=== PATIENT | female | born 1950 | race Caucasian/White ===

== ENCOUNTER → 2018-05-26 12:53 | Outpatient (BNVA) | payer MEDICARE, BC, SELFPAY | PROVIDERS: PCP Internal Medicine; Visit Provider Nurse Practitioner Adult Health | DX: G30.9 Alzheimer's disease, unspecified (principal); F02.80 Dementia in other diseases classified elsewhere, unspecified severity, without behavioral disturbance, psychotic disturbance, mood disturbance, and anxiety; R19.7 Diarrhea, unspecified | CPT/HCPCS: 99213 ==

== ENCOUNTER → 2018-11-26 15:09 | Outpatient (BNVA) | payer MEDICARE, BC, SELFPAY | PROVIDERS: PCP Internal Medicine; Visit Provider Nurse Practitioner Adult Health | DX: G30.1 Alzheimer's disease with late onset (principal); F02.80 Dementia in other diseases classified elsewhere, unspecified severity, without behavioral disturbance, psychotic disturbance, mood disturbance, and anxiety; E11.9 Type 2 diabetes mellitus without complications; Z79.84 Long term (current) use of oral hypoglycemic drugs | CPT/HCPCS: 99213 ==

== ENCOUNTER → 2019-05-27 12:32 | Outpatient (BNVA) | payer MEDICARE, BC, SELFPAY | PROVIDERS: PCP Family Medicine; Visit Provider Nurse Practitioner Adult Health | DX: G30.1 Alzheimer's disease with late onset (principal); F02.80 Dementia in other diseases classified elsewhere, unspecified severity, without behavioral disturbance, psychotic disturbance, mood disturbance, and anxiety; E11.9 Type 2 diabetes mellitus without complications; I10 Essential (primary) hypertension; Z79.84 Long term (current) use of oral hypoglycemic drugs | CPT/HCPCS: 99213 ==

== ENCOUNTER → 2020-06-13 11:11 | Outpatient (BNVA) | payer MEDICARE, BC, SELFPAY | PROVIDERS: PCP Family Medicine; Referring Provider Family Medicine; Visit Provider Nurse Practitioner Adult Health | DX: G30.1 Alzheimer's disease with late onset (principal); F02.80 Dementia in other diseases classified elsewhere, unspecified severity, without behavioral disturbance, psychotic disturbance, mood disturbance, and anxiety; E11.9 Type 2 diabetes mellitus without complications; I10 Essential (primary) hypertension; Z79.84 Long term (current) use of oral hypoglycemic drugs | CPT/HCPCS: 99213 ==

== ENCOUNTER → 2021-06-12 12:41 | Outpatient (BNVA) | payer MEDICARE, BC, SELFPAY | PROVIDERS: PCP Family Medicine; Visit Provider Nurse Practitioner Adult Health | DX: R69 Illness, unspecified (principal) ==

== ENCOUNTER 2021-06-12 13:06 | Emergency (ER) | payer MEDICARE, BC, SELFPAY ==
[2021-06-12 13:14] VITALS: BP 146/78; PULSE 83; RESP 18; TEMP 36.6; O2SAT 96
--- OUTSIDE RECORDS SUMMARY | 2021-06-12 13:30 | XMS_ITS ---
:1950 Author Care Team Providers Name Role Phone DR. ML RAO Primary Care Provider [phone] DR. ML RAO Referring Provider [phone] DR. ML DOMINIQUE Primary Care Provider [phone] DR. ML DOMINIQUE Referring Provider [phone] Allergies Code Code System Name Reaction Severity Status Onset 2670 RxNorm Codeine ? ? Active ? Corticosteroids ? ? Active ? (Glucocorticoids) Medications Name Status Start Date Stop Date ? ? ammonium lactate 12 % topical cream Active ? Not available Apply 1 application twice a day by topical route. atorvastatin 20 mg tablet Active ? Not av ailable Take 1 tablet every day by oral route in the evening. Centrum Complete Completed ? 02/03/2020 take one tab daily Colace 100 mg capsule Completed ? 12/17/2016 Take 1 capsule twice a day by oral route. donepezil 10 mg tablet Completed ? 6 Take 1 tablet every day by oral route in the evening for 30 day s. donepezil 5 mg tablet Completed ? 06/11/2016 Ecotrin Low Strength 81 mg tablet,enteric coated Active ? Not available Take 1 tablet every day by oral route. glimepiride 1 mg tablet Active ? Not avai lable Take 0.5 tablets every day by oral route for 30 days. Imodium A-D Completed ? 07/21/2019 Januvia 50 mg tablet Completed ? 07/21/2019 Take 1 tablet every day by oral route in the morning. ketoconazole 2 % topical cream Active ? N ot available APPLY TO THE AFFECTED AREA(S) BY TOPICAL ROUTE ONCE DAILY Lac-Hydrin Five 5 % lotion Active ? Not a vailable Apply 1 application twice a day by topical route. magnesium oxide 400 mg (241.3 mg magnesium) tablet Active ? Not available Take 1 tablet every day by oral route. meclizine 25 mg tablet Completed ? 6 metformin 500 mg tablet Active ? Not avai lable Take 1 tablet twice a day by oral route. Nitrostat 0.4 mg sublingual tablet Active ? Not available ondansetron 4 mg disintegrating tablet Active ? Not available as needed ondansetron HCl 4 mg tablet Completed ? 05/18 rivastigmine 4.6 mg/24 hour transdermal patch Active ? Not available Apply 1 patch every day by transdermal route. rivastigmine 9.5 mg/24 hour transdermal patch Completed ? 12/17/2016 Apply 1 patch every day by transdermal route. Tylenol PM Extra Strength Active ? Not av ailable one at bedtime urea 40 % topical cream Completed ? 12/18/19 17 APPLY TO THE AFFECTED AREA(S) BY TOPICAL ROUTE 2 TIMES PER DAY Problems Name Status Onset Date Source ? Diabetes Mellitus Active 06/11/2016 ? Hyperlipidemia Active 06/11/2016 ? Hypertensive Disorder Active 06/11/2016 ? Heart Disease Active 06/11/2016 ? Phlebitis Active 06/11/2016 ? Cramp in Lower Limb Active 06/11/2016 ? Murmur Active 06/11/2016 ? Heartburn Active 06/11/2016 ? Onychomycosis of Toenails Active 11/14/2020 ? Ingrowing Toenail Active 11/14/2020 ? Bilateral Atherosclerosis of Arteries of Active 021 ? Lower Limbs Pain of Toe of Left Foot Active 11/14/2020 ? Pain of Toe of Right Foot Active 11/14/2020 ? Procedures Date Name Performed by ? ? Shoulder Joint Surgery Information not a vailable ? Hysterectomy Information not avai lable ? Hernia Repair Information not avai lable ? Cholecystectomy Information not avai lable Notes: Stent placement Lumpectomy Results Lab Results None recorded. Past Encounters 03/15/2021 Ingrowing Toenail; Onychomycosis of Toen ails; Pain of Toe of Left Foot; Pain of Toe of Right Foot; Diabetes Mellitus; Bilateral Atherosclerosis of Arteries of Lower Limbs Lazarus Bolden, DPM: [address] [place] [address], Ph. 11/14/2020 Onychomycosis of Toenails; Ingrowing Toe nail; Pain of Toe of Right Foot; Pain of Toe of Left Foot; Bilateral Atherosclerosis of Arteries of Lower Limbs Lazarus Bolden, DPM: [address] [place] [address], Ph. 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 05/10/2020 Shine Barrios: [address] [place] [address], Ph. 02/03/2020 Onychomycosis of Toenails; Fissure in Sk in; Pain in Toe Shine Barrios: [address] [place] [address], Ph. Social History Tobacco Smoking Status Never Smoker Vaccine List None recorded. Plan of Care Reminders Provider Appointments None ? ? recorded. Lab None ? ? recorded. Referral None ? ? recorded. Procedures None ? ? recorded. Surgeries None ? ? recorded. Imaging None ? ? recorded. Vitals 03/15/2021 11:30AM DIABETIC FOOT CARE Height 146.05 cm 11/14/2020 11:45AM Foot Care Height Weight BMI Blood Pressure 146.05 cm 63.5 kg 29.8 kg/m2 122/62 mm[Hg] 08/15/2020 01:00PM Foot Care Height Weight BMI Blood Pressure 146.05 cm 63.5 kg 29.8 kg/m2 05/10/2020 01:30PM Foot Care Height Weight BMI Blood Pressure 146.05 cm 63.5 kg 29.8 kg/m2 104/78 mm[Hg] 02/03/2020 12:45PM Foot Care Height Weight BMI Blood Pressure 146.05 cm 63.5 kg 29.8 kg/m2 104/76 mm[Hg] 10/21/2019 12:30PM Foot Care Height Weight BMI Blood Pressure 146.05 cm 63.5 kg 29.8 kg/m2 104/76 mm[Hg] 07/21/2019 12:45PM Foot Care Height Weight BMI Blood Pressure 146.05 cm 63.5 kg 29.8 kg/m2 136/62 mm[Hg] 09/22/2018 12:45PM Foot Care Height Weight BMI Blood Pressure 146.05 cm 63.5 kg 29.8 kg/m2 128/72 mm[Hg] 05/28/2018 03:30PM Foot Care Height Blood Pressure 146.05 cm 120/70 mm[Hg] 02/18/2018 11:00AM Foot Care Height Weight BMI Blood Pressure 146.05 cm 63.5 kg 29.8 kg/m2 142/66 mm[Hg] 11/19/2017 10:45AM Foot Care Height Weight BMI Blood Pressure 146.05 cm 63.5 kg 29.8 kg/m2 (1) 132/80 mm[H g] (2) 142/80 mm[Hg ] 06/18/2017 12:30PM Foot Care Height Weight BMI Blood Pressure 146.05 cm 63.5 kg 29.8 kg/m2 128/62 mm[Hg] 03/18/2017 01:00PM Foot Care Height Weight BMI Blood Pressure 146.05 cm 63.5 kg 29.8 kg/m2 130/72 mm[Hg] 12/17/2016 01:00PM Foot Care Height Weight BMI Blood Pressure 146.05 cm 58.51 kg 27.4 kg/m2 110/62 mm[Hg] 09/18/2016 12:45PM Foot Care Height Weight BMI Blood Pressure 146.05 cm 58.51 kg 27.4 kg/m2 122/60 mm[Hg] 06/11/2016 01:15PM Foot Care Height Weight BMI Blood Pressure 146.05 cm 60.78 kg 28.5 kg/m2 132/72 mm[Hg]
--- OUTSIDE RECORDS SUMMARY | 2021-06-12 13:30 | XMS_ITS | Encounter Summary ---
:1950 Author Care Team Providers Name Role Phone Dr. Smith Vail Primary Care Provider [phone] Dr. Smith Farmer Primary Care Provider [phone] Dr. Smith Vail Referring Provider [phone] Dr. Smith Farmer Referring Provider [phone] Reason for Visit Diabetic Foot Care Assessment and Plan 1. Ingrowing toenail 2. Onychomycosis of toenails Plan: Procedure #[id number] man ual nail debridement was performed using nail clippers on all ten mycotic nails on the right and left foot. Thickened discolored subungual mycotic debris was removed fro m the nailbeds. The patient tolerated the procedure well without complication. Fol low-up in clinic in 3 to 4 months 3. Pain of toe of left foot 4. Pain of toe of right foot 5. Diabetes mellitus 6. Bilateral atherosclerosis of arteries of lower limbs Discussion Note: None recorded.Patient educational handouts: No information available. Plan of Care Reminders Provider Appointments Diabetic Lazarus Bolden, Foot Care 06/15/2021 DPM 11:30AM Lab None ? ? recorded. Referral None ? ? recorded. Procedures None ? ? recorded. Surgeries None ? ? recorded. Imaging None ? ? recorded. Medications Name Start Date ? ? ammonium lactate 12 % topical cream ? Apply 1 application twice a day by topical route. atorvastatin 20 mg tablet ? Take 1 tablet every day by oral route in the evening. Ecotrin Low Strength 81 mg tablet,enteric coated ? Take 1 tablet every day by oral route. glimepiride 1 mg tablet ? Take 0.5 tablets every day by oral route for 30 days. ketoconazole 2 % topical cream ? APPLY TO THE AFFECTED AREA(S) BY TOPICAL ROUTE ONCE D AILY Lac-Hydrin Five 5 % lotion ? APPLY TOPICALLY TWICE A DAY magnesium oxide 400 mg (241.3 mg magnesium) tablet ? Take 1 tablet every day by oral route. metformin 500 mg tablet ? Take 1 tablet twice a day by oral route. Nitrostat 0.4 mg sublingual tablet ? ondansetron 4 mg disintegrating tablet ? as needed rivastigmine 4.6 mg/24 hour transdermal patch ? Apply 1 patch every day by transdermal route. Tylenol PM Extra Strength ? one at bedtime Medications Administered None recorded. Vitals Height 4 ft 9.5 in Results Lab Results None recorded. Allergies Code Code System Name Reaction Severity Onset 2669 RxNorm Codeine ? ? ? Corticosteroids ? ? ? (Glucocorticoids) Problems Name Status Onset Date Source ? [...] not avai lable Notes: Stent placement Lumpectomy Vaccine List None recorded. Social History Tobacco Smoking Status Never Smoker Have you travelled outside of [place] in the past 14 days? Have you experienced any of the following N symptoms in the past 48 hours? Fever/Chills, Cough, Shortness of breath or difficulty breathing, fatigue, muscle or body aches, headache, new loss of taste or smell, sore throat, congestion or runny nose, nausea or vomiting and/or diarrhea Do you or have you ever used smokeless Never used smokeless tobacco tobacco? Are you currently waiting on results of a N COVID-19 test? Within the past 14 days, have you been in N close physical contact (6 feet or closer for a cumulative total of 15 minutes) with anyone that is known to have laboratory-confirmed COVID-19? OR Anyone who has any symptoms consistent with COVID-19? Have you been to an area known to be high N risk for COVID-19? Are you isolating or quarantining because N you may have been exposed to a person with COVID-19 or are worried that you may be sick with COVID-19? What was the date of your most recent 03/15/2021 tobacco screening? Do you or have you ever used e-cigarettes Never used electro ruchi cigarettes or vape? In the 14 days before symptom onset, did N the patient spend time in [facility]? If patient spent time in [facility] N - Does the patient live in [facility]? Family History Relation Problem Onset Age of Age Notes Unspecified Relation Asthma (No N/A (No Not es) Information) Unspecified Relation Coronary arteriosclerosis (No N/A (No Notes) Information) Unspecified Relation Malignant tumor of colon (No N/A (No Notes) Information) Unspecified Relation Diabetes mellitus (No N/A (N o Notes) Information) Functional Status Unknown. Past Encounters 03/15/2021 Ingrowing Toenail; Onychomycosis of Toen ails; Pain of Toe of Left Foot; Pain of Toe of Right Foot; Diabetes Mellitus; Bilateral Atherosclerosis of Arteries of Lower Limbs Lazarus Bolden, DPM: [address] [place] [address], Ph. History of Present Illness Note: Barbara is a 70-year-old type II diabetic female patient who is seen today for mycotic painful dystrophic ingrown nails on the right and left foot. Review of Systems ? Notes: all neg at this time Physical Exam ? Notes: Constitutional: well develop ed, appears stated age, well nourished, no acute distress, alert and oriented to time, place and person, weight-appropriate to height

Vascular:
Dorsalis pedis pulse-1/4 bilaterally
Posterior tibial pulse-absent bilatera lly
Venous filling time at the digit levels-2 seconds
Digital hair-abse nt
Skin texture and turgor-slightly diminished
Pedal temperat ure-warm
Extremity varicosities-none
Vinny a-trace pedal edema
Ischemia-none noted
Digital cyanosis-no ne noted

Dermatologic: Examination is significant for painful myco tic, dystrophic incurvated ingrown nails on the right and left foot x10. The re is no evidence of drainage, bleeding, subungual hematoma or pyogenic granulo ma present. There is no paronychial inflammation in the nail borders noted. N o skin lesions, breaks in skin integrity or ulcerations are noted on the cutaneous surfaces of the lower legs, ankles or feet bilaterally.

Hermila rologic: Alert and oriented times 3, concentrating ability not decreased, symme trical bulk, strength and tone in the lower extremities, coordination is normal.
Sensory examination-intact on the L4-S1 dermatome
Motor exa mination-no weakness noted
Coordination and tremors-no intentional or re sting tremors are noted, no adventitious movement noted
Muscle fasciculatio ns-no fasciculations noted in the lower extremity muscles
Atrophy-no atroph y noted in the intrinsic muscles of the feet, lower legs or thighs

Musculoskeletal: Able to rise from a chair and get up onto the orthopaedic examination table, no acute findings noted

Gait: Normal ga it and station, normal posture, no antalgia noted

This clinic not e/operative note was created using [employer] recognition so ftware. The note was reviewed by myself for primary content. There may b e multiple small syntactical discrepancies and errors due to the voice cat gnition limitations of the software-Dr. Bolden.
--- NOTE | 2021-06-12 14:15 | DI.RAD_ITS ---
Exam(s) XR HIP RT COMPLETE AP PELVIS EXAM: XR HIP RT COMPLETE AP PELVIS CLINICAL HISTORY: right hip pain. TECHNIQUE: 2D digital imaging was performed. COMPARISON: No exams were available for comparison FINDINGS: AP view the pelvis and 2 additional views of the right hip reveal no evidence of pelvic nor hip fract ure. Bony excrescences are seen off both anterior superior iliac spines. Some degenerative changes noted in the hips. This appears mild IMPRESSION: As above. No fractures. DATA REPOSITORY: RADIATION DOSE DELIVERED:
--- NOTE | 2021-06-12 14:15 | DI.RAD_ITS ---
Exam(s) XR LUMBAR SPINE COMPLETE EXAM: XR LUMBAR SPINE COMPLETE CLINICAL HISTORY: low back pain. TECHNIQUE: 2D digital imaging was performed. COMPARISON: No exams were available for comparison FINDINGS: There is transitional anatomy. No evidence of compression fracture nor or listhesis. There is disc space narrowing (moderate) at jessica th L4-5 and L5-S1 levels. Other disc spaces exhibit preserved disc height although there are flowing multilevel osteophytes. No ominous osseous lesions. Moderate degenerative changes facet joints of the lower 3 levels. No osseous lesions. IMPRESSION: As above. Also noted are multiple air-filled small bowel loops in the abdomen. DATA REPOSITORY: RADIATION DOSE DELIVERED:
--- NOTE | 2021-06-12 14:15 | DI.RAD_ITS ---
Exam(s) XR WRIST RT COMPLETE EXAM: XR WRIST RT COMPLETE CLINICAL HISTORY: right wrist pain. TECHNIQUE: 2D digital imaging was performed. COMPARISON: No exams were available for comparison FINDINGS: There is no evidence of acute fracture. Mild degenerative changes are noted. No significant ulnar variance. IMPRESSION: DATA REPOSITORY: RADIATION DOSE DELIVERED:
--- NOTE | 2021-06-17 09:30 | W.ED.GENAD ---
Discharge Plan Disposition Patient Disposition: HOME Condition: Stable Discharge Details Clinical Impression: Pain in wrist, Hip pain Primary Care Provider: [facility] ED Provider: Sheila An Home Meds and New Rx's Prescriptions: Continued magnesium oxide 400 mg (241.3 mg magnesium) tablet 400 mg PO DAILY Qty: 90 RF: 3 ondansetron 4 mg tablet,disintegrating 4 mg PO Q8H PRN PRN (Reason: nausea and vomiting) Qty: 30 RF: 3 (DME) True Metrix Pro Test Strip Strip See Rx Instructions .ROUTE .MEDSUPPLY Qty: 100 RF: 6 metformin 500 mg tablet See Rx Instructions PO BID Qty: 180 RF: 3 Hold Instructions: Changed by Provider ketoconazole 2 % cream 1 applic topical DAILY PRNRF: 0 glimepiride 1 mg tablet 1 mg PO DAILY Qty: 90 RF: 3 atorvastatin 20 mg tablet 20 mg PO QPM Qty: 90 RF: 3 diphenhydramine-acetaminophen [Acetaminophen PM] 1 EACH tablet 1 ea PO HS RF: 0 nitroglycerin 0.4 MG tablet, sublingual 0.4 mg Sublingual DIRECTED PRNQty: 25 RF: 6 (DME) blood sugar diagnostic Strip See Rx Instructions .ROUTE .MEDSUPPLY Qty: 100 RF: 3 rivastigmine [Exelon Patch] 4.6 mg/24 hr patch 24 hour 4.6 mg TD DAILY Qty: 30 RF: 11 diphenoxylate-atropine [Lomotil] 2.5-0.025 mg tablet 1 tab PO DAILY Qty: 30 RF: 5 Discharge Instructions Instructions: Acute Low Back Pain (ED), Arthralgia (ED) Additional Instructions: Please return immediately to the emergency department if you develop any new or worsening symptoms, if your condition does not improve as expected, or if you become otherwise concerned. It is extremely important that you call soon as possible to make an appointment to be seen in follow-up for this visit by your primary care doctor. Referrals: Smith Vail DO [Primary Care Provider] - Discharge Data Discharge Date/Time-TO BE ENTERED AT DEPARTURE: 06/12/21 17:09 Medical Decision Making Barbara Barr is a 71 y/o woman with h/o alzheimer's disease, HLD, HTN, DM, CAD who presented to the emergency department with right hip and wrist pain while getting out of car with no apparent trauma. On exam Pt appears well and non-toxic, appears comfortable. Unclear whether there is right wrist TTP, if present is mild. Mild TTP right hip. Concern for possible (subacute?) trauma, pathologic fx of the lumbar spine/hip/pelvis, sciatica, other. Exam/hx at this time is not c/w acute aortic pathology, sepsis, acute emergent intra-abdominal process. Plan for xrays wrist, lumbar spine, hip. xrays negative. On reassessment Pt reports that she feels fine and would like to go home. Pt is able to stand and walk without issue. Using right hand wrist without issue. I discussed with Pt and her that source of pain had not been identified. Pt's states that he feels comfortable taking Pt home at this time given her complete resolution of symptoms. I had a lengthy discussion with Patient and her regarding return to emergency department precautions, home care, and importance of outpatient follow-up. Pt and her verbalize understanding of the plan and are amenable. Patient discharged to home with clear plan for outpatient follow-up. All questions were answered. Disposition decision was made weighing the risks and benefits of hospitalization versus outpatient treatment, the risk for further decompensation, and the patient's wishes. Medical Records Medical records reviewed: Yes I reviewed the patient's medical records. Imaging Data Radiologic Study: Attestation: I personally reviewed and interpreted this imaging study as follows: Radiologist's impression: EXAM: XR WRIST RT COMPLETE CLINICAL HISTORY: right wrist pain. TECHNIQUE: 2D digital imaging was performed. COMPARISON: No exams were available for comparison FINDINGS: There is no evidence of acute fracture. Mild degenerative changes are noted. No significant ulnar variance. EXAM: XR LUMBAR SPINE COMPLETE CLINICAL HISTORY: low back pain. TECHNIQUE: 2D digital imaging was performed. COMPARISON: No exams were available for comparison FINDINGS: There is transitional anatomy. No evidence of compression fracture nor or listhesis. There is disc space narrowing (moderate) at both L4-5 and L5-S1 levels. Other disc spaces exhibit preserved disc height although there are flowing multilevel osteophytes. No ominous osseous lesions. Moderate degenerative changes facet joints of the lower 3 levels. No osseous lesions. IMPRESSION: As above. Also noted are multiple air-filled small bowel loops in the abdomen. EXAM: XR HIP RT COMPLETE AP PELVIS CLINICAL HISTORY: right hip pain. TECHNIQUE: 2D digital imaging was performed. COMPARISON: No exams were available for comparison FINDINGS: AP view the pelvis and 2 additional views of the right hip reveal no evidence of pelvic nor hip fracture. Bony excrescences are seen off both anterior superior iliac spines. Some degenerative changes noted in the hips. This appears mild IMPRESSION: As above. No fractures. HPI General Mode of arrival: wheelchair. Date/Time Provider Initiated Documentation: 06/12/21 14:20. Limitations to Documentation: no limitations. Information obtained by: patient, family, RN notes reviewed and old records reviewed. HPI Narrative: Barbara Barr is a 71 y/o woman with h/o alzheimer's disease, HLD, HTN, DM, CAD presenting to the emergency department with right hip pain. Pt is accompanied by her who also provides the history. Pt's states that Pt was getting out of the care across the street to attend scheduled neurology appointment for dementia when Pt complained suddenly of right hip pain and right wrist pain. Pt seemed to have some difficulty walking due to pain, and then due to continued pain in the hip and wrist was sent from neurology waiting room to ED for further eval. Pt's reports that Pt was previously well and in her usual state of health. To his knowledge Pt has had no recent falls, and he states there was no trauma at time of onset of pain. Pt reports that at this point she feels comfortable when seated as long she doesn't move much. She reports right hip and low back pain if she changes position. She states she is unsure if her wrist hurts. She and her deny any other pain, fever, cough, SOB, vomiting, diarrhea, new weakness. Has been eating and drinking as usual. Pt is a poor historian. Pt's states that prior to Pt getting out of car and c/o pain, he had no concerns for acute illness. Related Data Home Medications Medication Instructions Recorded Confirmed diphenhydramine-acetaminophen 1 ea PO HS cap 01/18/17 06/12/21 [Acetaminophen PM] nitroglycerin 0.4 mg SUBLINGUAL DIRECTED PRN 04/28/18 06/12/21 #25 tab blood sugar diagnostic #100 each 05/26/19 06/12/21 magnesium oxide 400 mg (241.3 mg 400 mg PO DAILY #90 tab-cap 01/28/20 06/12/21 magnesium) tablet ondansetron 4 mg disintegrating 4 mg PO Q8H PRN PRN #30 tab 01/28/20 06/12/21 tablet blood sugar diagnostic #100 each 07/26/20 06/12/21 rivastigmine 4.6 mg/24 hour 4.6 mg TD DAILY #30 each 07/26/20 06/12/21 transdermal patch atorvastatin 20 mg tablet 20 mg PO QPM #90 tab 11/24/20 06/12/21 glimepiride 1 mg tablet 1 mg PO DAILY #90 tab 11/24/20 06/12/21 ketoconazole 2 % topical cream 1 applic TOPICAL DAILY PRN 11/24/20 06/12/21 diphenoxylate-atropine 2.5 1 tab PO DAILY #30 tab 03/27/21 06/12/21 mg-0.025 mg tablet metformin 500 mg tablet See Rx Instructions PO BID #180 06/01/21 06/12/21 tab-cap Previous Rx's Medication Instructions Recorded blood sugar diagnostic #100 each 05/26/19 magnesium oxide 400 mg (241.3 mg 400 mg PO DAILY #90 tab-cap 01/28/20 magnesium) tablet ondansetron 4 mg disintegrating 4 mg PO Q8H PRN PRN #30 tab 01/28/20 tablet blood sugar diagnostic #100 each 07/26/20 rivastigmine 4.6 mg/24 hour 4.6 mg TD DAILY #30 each 07/26/20 transdermal patch atorvastatin 20 mg tablet 20 mg PO QPM #90 tab 11/24/20 glimepiride 1 mg tablet 1 mg PO DAILY #90 tab 11/24/20 diphenoxylate-atropine 2.5 1 tab PO DAILY #30 tab 03/27/21 mg-0.025 mg tablet metformin 500 mg tablet See Rx Instructions PO BID #180 06/01/21 tab-cap Allergies Allergy/AdvReac Type Severity Reaction Status Date / Time donepezil AdvReac Severe Nausea; Verified 06/12/21 13:21 nightmares cortisone AdvReac Intermediate Injection Verified 06/12/21 13:21 - syncope codeine AdvReac Mild headache Verified 06/12/21 13:21 dicyclomine AdvReac Mild Bloating Verified 06/12/21 13:21 ragweed Allergy Intermediate sneezing Uncoded 06/12/21 13:21 General Stated Complaint: FlankPain VENICE: 3 Review of Systems Narrative: Constitutional: denies fevers Eyes: denies eye pain ENT: denies ear pain, dental pain, sore throat Cardiovascular: denies chest pain Respiratory: denies SOB, cough GI: denies abdominal pain, vomiting, diarrhea : denies flank pain MSK: denies back pain, neck pain, reports right hip and wrist pain Skin: denies rash Neuro: denies headaches, numbness, weakness [facility] Medical History (Updated 06/12/21 @ 16:36 by Sheila An MD) Alopecia (08/13/17) Alzheimer disease Chronic ischemic heart disease (01/21/05) ANGIOPLASTY 01/2005; follows Dr Rohit Mota () Conjunctival hemorrhage of left eye Diabetes mellitus (09/16/86) Dr Edmondson very high BS, initial insulin, transitioned to pills Diarrhea (12/07/16) since 2016 at least, with increased urgency, taisha post prandial 11/03/18 Dr Gonzalez [facility] - diarrhea with positive fecal fat (appears to be osmotically driven) Dysplasia of anus (12/02/06) PERIANAL DYSPLASIA EXCISED 11/2006; Dr Titus Hamm COUNT INCLUDES [facility]-->f/u [facility] Dr Hugh Erwin 04/10/17 Esophageal disorder (11/12/14) s/p Lap Lory 2009 & 2012 [facility] [place]; Ba Swallow presbyesophagus 06/2014; regurgitant symptoms; no help metoclopramide 10 mg 01/2015 Functional diarrhea Hyperlipidemia (12/11/11) Hypertension (12/11/11) Hypomagnesemia (11/01/15) 1.2 Svetlana ER Sep 2015; ? renal (not on diuretic) Irritable bowel syndrome with diarrhea Late onset Alzheimer's disease without behavioral disturbance (03/06/16) Musculoskeletal disorder of neck (12/08/12) managed [place], [place] orthopedist Sensorineural hearing loss, unspecified (12/11/11) Dr Manjarrez. asymmetrical. Tinnitis of both ears Sleep disturbances (12/11/11) Tubular adenoma of colon (05/14/17) 7 mm ascending colon Surgical History Colonoscopy x/ bx (10/30/17) EGD - IV Sedation (07/01/15) Final Path Diagnosis: Biopsy of antrum of stomach: Gastric antral mucosa with reactive (chemical) gastropathy. Biopsy of distal esophagus: Squamocolumnar junction mucosa with reactive changes; Negative for intestinal metaplasia; Negaive for dysplasia. Biopsy of mid esophagus: Squamous mucosa with mild reactive changes Biopsy of proximal esophagus: Squamous mucosa with no specific pathologic features. 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 Current gender identity: female What is your relationship status?: Panel score (0-1 are the most socially isolated patients): 1 What type of physical activity do you participate in: walking and swimming Duration: 30-45 minutes/day Frequency: 3-4 times per week Seatbelt use: always Working smoke detector in home: Yes Fire extinguisher in home: Yes Carbon monox detector in home: Yes Exam Narrative Exam Narrative: Constitutional: well and [id number], pleasant HENT: head atraumatic/normocephalic/normal inspection, mucous membranes moist Eyes: conjunctiva normal, sclera normal, pupils 3mm b/l Neck: no stridor, normal ROM, trachea midline Resp: normal work of breathing, speaking in full sentences Cardio: normal rate, normal rhythm GI: abdomen soft, non-tender, non-distended Back: normal inspection, no rash, no lumbar TTP Skin: warm, dry, normal color, no rash Neuro: alert, grossly non-focal, normal tone Ext: no edema, Pt states that she is unsure if she has pain when her right wrist is palpated, but appears to be in no discomfort, reports TTP of right hip, no TTP left hip Psych: normal mood, normal affect Course Vital Signs Vital signs: Vital Signs Temperature 36.6 C 06/12/21 13:14 Pulse 83 06/12/21 13:14 Respiratory Rate 18 06/12/21 13:14 Blood Pressure 146/78 H 06/12/21 13:14 Pulse Oximetry 96 06/12/21 13:14 Temperature 36.6 C 06/12/21 13:14 Temperature Source Skin 06/12/21 13:14 Pulse 83 06/12/21 13:14 Respiratory Rate 18 06/12/21 13:14 Respiratory Effort 06/12/21 13:22 Blood Pressure 146/78 H 06/12/21 13:14 Blood Pressure Position Sitting 06/12/21 13:14 Pulse Oximetry 96 06/12/21 13:14 Oxygen Delivery Method Room Air 06/12/21 13:14 Oxygen Flow Rate 0 06/12/21 13:14 Pain Level 6 06/12/21 13:14
== END 2021-06-12 17:09 | disposition home or self-care (01) ==
PROVIDERS: Emergency Provider Student in an Organized Health Care Education/Training Program; PCP Family Medicine
DX: M25.551 Pain in right hip (principal); M25.531 Pain in right wrist; M54.5 Low back pain
CPT/HCPCS: 99284; 72110; 73110; 73502; 99283

== ENCOUNTER → 2021-10-04 11:01 | Outpatient (BNVA) | payer MEDICARE, BC, SELFPAY | PROVIDERS: PCP Family Medicine; Visit Provider Nurse Practitioner Adult Health | DX: G30.1 Alzheimer's disease with late onset (principal); F02.80 Dementia in other diseases classified elsewhere, unspecified severity, without behavioral disturbance, psychotic disturbance, mood disturbance, and anxiety; Z79.899 Other long term (current) drug therapy | CPT/HCPCS: 99213; 99214 ==

== ENCOUNTER → 2022-02-21 12:26 | Outpatient (BNVA) | payer MEDICARE, BC, SELFPAY | PROVIDERS: PCP Family Medicine; Referring Provider Family Medicine; Visit Provider Nurse Practitioner Adult Health | DX: G30.1 Alzheimer's disease with late onset (principal); F02.80 Dementia in other diseases classified elsewhere, unspecified severity, without behavioral disturbance, psychotic disturbance, mood disturbance, and anxiety | CPT/HCPCS: 99213 ==

== ENCOUNTER → 2022-10-03 12:29 | Outpatient (BNVA) | payer MEDICARE, BC, SELFPAY | PROVIDERS: PCP Family Medicine; Referring Provider Family Medicine; Visit Provider Nurse Practitioner Adult Health | DX: G30.1 Alzheimer's disease with late onset (principal); F02.80 Dementia in other diseases classified elsewhere, unspecified severity, without behavioral disturbance, psychotic disturbance, mood disturbance, and anxiety; R40.4 Transient alteration of awareness | CPT/HCPCS: 99213; 99214 ==

== ENCOUNTER 2023-01-15 14:11 | Outpatient (CLI) | payer MEDICARE, BC, SELFPAY ==
[2023-01-15 15:27] LABS: Anion Gap 9.3 mmol/L (3-11); BUN 17 mg/dL (7-18); CO2 24.7 mmol/L (21.0-32.0); CREATININE 1.1 mg/dL (0.55-1.02); Calcium 9.4 mg/dL (8.5-10.1); Chloride 106 mmol/L (98-107); Estimated GFR 53.06 (mL/min/1.73m2); Glucose 251 mg/dL (74-106); Potassium 4.2 mmol/L (3.5-5.1); Sodium 140 mmol/L (136-145)
== END 2023-01-15 14:12 | disposition home or self-care (01) ==
LOC: LBO 14:14
PROVIDERS: PCP Family Medicine; Visit Provider Family Medicine
DX: N18.9 Chronic kidney disease, unspecified (principal)
CPT/HCPCS: 36415; 80048

== ENCOUNTER → 2023-04-03 12:57 | Outpatient (BNVA) | payer MEDICARE, BC, SELFPAY | PROVIDERS: PCP Family Medicine; Visit Provider Nurse Practitioner Adult Health | DX: G30.1 Alzheimer's disease with late onset (principal); F02.80 Dementia in other diseases classified elsewhere, unspecified severity, without behavioral disturbance, psychotic disturbance, mood disturbance, and anxiety | CPT/HCPCS: 99213 ==